=== PATIENT | male | born 1935 | race Caucasian/White ===

== ENCOUNTER 2018-05-08 14:44 | Outpatient (CLI) | payer MEDICARE ==
[2018-05-08 16:23] LABS: #Eosinphils 0.1 thou/uL (0.0-0.7); #Lymphocytes 2.6 thou/uL (1.20-3.40); #Monocytes 0.6 thou/uL (0.11-0.59); #Neutrophils 4.6 thou/uL (1.40-6.50); %Basophils 0.2 % (0.0-1.0); %Eosinophils 1.4 % (0.0-10.0); %Lymphocytes 32.3 % (21.0-51.0); %Monocytes 7.8 % (0.0-10.0); %Neutrophils 58.4 % (42.0-75.0); Hemoglobin 15.5 g/dL (14.0-18.0); Mean Corpuscular HGB CONC 35.2 g/dL (32.0-36.0); Mean Corpuscular Hemoglobin 32.2 pg (27.0-31.0); Mean Corpuscular Volume 91.4 fL (78.0-98.0); Mean Platelet Volume 7.6 fL (7.4-10.4); Platelet Count 245 thou/uL (130-400); RBC Distribution Width 11.4 % (11.5-14.5); Red Blood Cell (RBC) Count 4.82 mill/uL (4.70-6.10); White Blood Cell (WBC) Count 7.9 thou/uL (4.8-10.8)
[2018-05-08 16:44] LABS: ALT (SGPT) 23 U/L (8-55); AST (SGOT) 18 U/L (5-34); Albumin 4.8 g/dL (3.4-4.8); Alkaline Phosphatase 47 U/L (40-150); Anion Gap 13 mmol/L (10-20); BUN (Urea Nitrogen) 25 mg/dL (8.4-25.7); Bilirubin, Total 0.8 mg/dL (0.2-1.2); Calc. Creatinine Clearance 0 mL/min (70-130); Calcium 10.6 mg/dL (7.8-10.44); Carbon Dioxide 26 mmol/L (23-31); Chloride 104 mmol/L (98-107); Estimated GFR-MDRD 46; Globulin 2.7 g/dL (2.4-3.5); Glucose 101 mg/dL (83-110); Potassium 3.3 mmol/L (3.5-5.1); Protein, Total 7.5 g/dL (5.8-8.1); Sodium 140 mmol/L (136-145)
== END 2018-05-08 14:45 | disposition home or self-care (01) ==
LOC: LABBT 14:44
PROVIDERS: ATTEND Surgery
DX: Z01.818 Encounter for other preprocedural examination (principal); C43.59 Malignant melanoma of other part of trunk
CPT/HCPCS: 80053; 85025; 93005; 93010

== ENCOUNTER 2018-05-15 07:19 | Day surgery (SDC) | payer MEDICARE ==
[2018-05-08 15:07] VITALS: BMI 26.3
[2018-05-15] MEDS ORDERED: CEFAZOLIN/Water 2 GM/20 ML SYRINGE ONE (09:49)
--- NOTE | 2018-05-15 10:18 | NM ---
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 PROCEDURE: Informed consent was obtained. The patient was escorted to the procedural suite. The patient was pl aced in the prone position. The area of interest at the site of ptient's recently biopsied skin lesi on was prepped and draped in a standard sterile fashion. Subsequently, 4 separate intradermal injec tions totally 0.4 mCi Technetium 99m filtered sulfur colloid was administered to the patient in 4 sep arate tobi-tumoral injections. Subsequent scintigraphic imaging was performed. No procedural complications. FINDINGS: There are 3 separate foci of increased scintigraphic activity localizing to the right axilla compatib le with right axillary lymph nodes. IMPRESSION: Technically successful lymphoscintigraphy revealing scintigraphic activity of right axillary lymph no ricardo. POS: ISAÍAS
[2018-05-15] MEDS ORDERED: Fentanyl 100 MCG/2 ML VIAL ONE (10:21)
[2018-05-15] MEDS ORDERED: HYDROmorphone 0.5 MG/0.5 ML SYRINGE ONE (10:21)
[2018-05-15] MEDS ORDERED: Isosulfan Blue 50 MG/5 ML VIAL ONE (10:44)
[2018-05-15] MEDS ORDERED: Bupivacaine/Epinephrine 0.25% 30 ML VIAL ONE (10:46)
--- NOTE | 2018-05-15 13:28 | OP ---
DATE OF PROCEDURE: 05/15/2018 PREOPERATIVE DIAGNOSIS: Malignant melanoma of back. SURGEON: Rad Mendoza M.D. PROCEDURE PERFORMED: Wide local excision with left axillary sentinel node biopsy. INDICATIONS: This is an 83-year-old male who had an irregular nevus. He had a shave biopsy done [place] t showed a lentigo malignant melanoma. FINDINGS: Two sentinel lymph nodes were found, excised with 2 cm margins. It was about a 1 cm irreg ular melanoma. The final excisional dimensions were 6 x 13 cm. PROCEDURE IN DETAIL: After informed consent was obtained, the patient was taken to the operating carly m and given general endotracheal anesthesia. He was initially placed on lateral and an injection was performed utilizing 1.5 mL of Lymphazurin intradermal around the tumor. Then, he was placed supine and his axilla was prepped and draped in usual fashion. The Neoprobe was used at baseline with count s around 25 were found. Then transcutaneous counts of about 50 were found. A transverse axillary in cision was performed in vivo counts of 70 found, a lymph node found and dissected out, efferent and a fferent lymphatics ligated with 3-0 Vicryl ties, sent as lymph node 1. Then I found another hot spot with again counts around 70. A second node was found and efferent lymphatics ligated, ex vivo count s of 110 on this one. Hemostasis was assured. The subcu was reapproximated with interrupted 3-0 Bandar ryl. Skin closed with a running subcuticular 4-0 Rapide. Steri-Strips applied. Sterile bandage simran lied. Then, the patient was placed in the right lateral decubitus position. His back was prepped an d draped in usual fashion. 2 cm margins were measured off circumferentially. An elliptical incision was performed, it was done transversely due to the fact that it was much easier to close the skin th at way. An elliptical incision excised down to the subcu. It was excised with the subcu. It was ma rked with a blue suture superior, and a white suture left side, sent to pathology for further analysi s. Hemostasis was achieved with electrocautery. Subcutaneous reapproximated with interrupted 3-0 Vi cryl. Skin closed with interrupted vertical mattress sutures with 3-0 Prolene suture. A sterile ban dage was applied. The patient tolerated the procedure well and was transferred to recovery in good c ondition. Sponge and needle count verified correct x2.
[2018-05-15] MEDS ORDERED: ePHEDrine/0.9% NaCl/PF SYRINGE 50 mg/10 ml ONE (14:07)
[2018-05-15] MEDS ORDERED: Lidocaine 1% PF 5 ML VIAL ONE (14:07)
[2018-05-15] MEDS ORDERED: PROPOFOL 200 MG/20 ML VIAL ONE (14:07)
[2018-05-15] MEDS ORDERED: Ondansetron HCl/PF 4 MG/2 ML Vial ONE (14:07)
[2018-05-15] MEDS ORDERED: PHENYLEPHRINE-NS 100 MCG/ML 10 ML SYRINGE ONE (14:07)
[2018-05-15] MEDS ORDERED: Ketorolac Tromethamine 30 MG/ML VIAL ONE (14:07)
[2018-05-15] MEDS ORDERED: Succinylcholine Chloride 20 MG/ML 10 ml SYRINGE FS ONE (14:07)
[2018-05-15] MEDS ORDERED: Dexamethasone 20 MG/5 ML VIAL ONE (14:07)
== END 2018-05-15 15:00 | disposition home or self-care (01) ==
LOC: SDC 07:19
PROVIDERS: ATTEND Surgery
PROC: 0HB6XZZ Excision of Back Skin, External Approach (ICD-10-PCS; principal; 2018-05-15)
PROC: 07B60ZX Excision of Left Axillary Lymphatic, Open Approach, Diagnostic (ICD-10-PCS; 2018-05-15)
DX: D03.59 Melanoma in situ of other part of trunk (principal); M19.90 Unspecified osteoarthritis, unspecified site; E78.00 Pure hypercholesterolemia, unspecified; I10 Essential (primary) hypertension; M81.0 Age-related osteoporosis without current pathological fracture; Z79.83 Long term (current) use of bisphosphonates; Z79.82 Long term (current) use of aspirin; Z79.899 Other long term (current) drug therapy
CPT/HCPCS: 11606; 12035; 38525; 78195; 88305; 88307; 88341; 88342; A9541; Q9968; J0131; J1100; J1170; J1885; J2001; J2405; J2704; J3010

== ENCOUNTER 2022-08-21 08:32 | Inpatient (IN) | payer MEDICARE ==
[2022-08-21] MEDS ORDERED: Cefepime 2 GM VIAL ONE (08:55)
[2022-08-21] MEDS ORDERED: Vancomycin 1 GM/200 ML BAG ONE (08:59)
[2022-08-21 09:19] LABS: ALT (SGPT) 27 U/L (8-55); AST (SGOT) 25 U/L (5-34); Albumin 2.5 g/dL (3.4-4.8); Alkaline Phosphatase 245 U/L (40-110); Anion Gap 20 mmol/L (10-20); BUN (Urea Nitrogen) 83 mg/dL (8.4-25.7); Bilirubin, Total 1.3 mg/dL (0.2-1.2); Calc. Creatinine Clearance 0 mL/min (70-130); Calcium 8.6 mg/dL (7.8-10.44); Carbon Dioxide 11 mmol/L (23-31); Chloride 117 mmol/L (98-107); Estimated GFR 16; Globulin 2.7 g/dL (2.4-3.5); Glucose 74 mg/dL (83-110); Potassium 4.4 mmol/L (3.5-5.1); Protein, Total 5.2 g/dL (5.8-8.1); Sodium 144 mmol/L (136-145)
[2022-08-21 09:33] LABS: CK (CPK) 100 U/L (30-200); Lipase Less than 4 U/L (8-78)
[2022-08-21 09:54] LABS: Bilirubin Negative (Negative); Blood, Urine 3+ (Negative); Clarity Extra Turbid (Clear); Glucose, Urine (Dipstick) Normal (Negative); Ketone, Urine Negative (Negative); Leukocyte 500 Leu/uL (Negative); Nitrite Negative (Negative); Protein, Urine (Dipstick) 300 mg/dL (Neg-Trace); Specific Gravity, Urine 1.015 (1.002-1.036); Squamous Epithelial None Seen HPF (0-3); Urobilinogen Normal mg/dL (Less than 2); pH, Urine 8.5 (5.0-9.0)
[2022-08-21 10:02] LABS: Bacteria/HPF 4+ HPF (None Seen); WBC/HPF 21-50 HPF (0-3)
[2022-08-21 10:16] LABS: Hemoglobin 7.9 g/dL (14.0-18.0); Mean Corpuscular HGB CONC 31.1 g/dL (32.0-36.0); Mean Corpuscular Hemoglobin 32.1 pg (27.0-31.0); Mean Platelet Volume 8.1 fL (7.4-10.4); Platelet Count 206 thou/uL (130-400); RBC Distribution Width 13.5 % (11.5-14.5); Red Blood Cell (RBC) Count 2.46 mill/uL (4.70-6.10); White Blood Cell (WBC) Count 17.3 thou/uL (4.8-10.8)
[2022-08-21] MEDS ORDERED: Sodium Bicarb 50 MEQ/50 ML VIAL ONE ×3 (10:42→11:07)
[2022-08-21] MEDS ORDERED: Sodium Bicarbonate 150 MEQ in Dextrose 5% in Water 1,000 ML IV SCH ×3 (10:45→15:57)
[2022-08-21 10:48] LABS: Band 24 % (5-11); Burr Cells SLIGHT = 2-5 cells (100X) (0-1/hpf); Hypochromia SLIGHT = 6-15 cells (100X) (0-5/hpf); Lymphocytes 1 % (21-51); MDiff Complete? YES; Macrocytosis SLIGHT = 6-15 cells (100X) (0-5/hpf); Monocytes 1 % (0-10); Neutrophil 74 % (42-75); Platelet Morphology Comment Appears Adequate; Polychromasia SLIGHT = 2-3 cells (100X) (0-2/hpf)
[2022-08-21 10:53] LABS: SARS-CoV-2 NAA Rapid Test Not Detected (NotDetected)
[2022-08-21 10:54] LABS: INR-International Normal Ratio 1.3; Prothrombin Time 17.1 sec (12.0-14.7)
[2022-08-21 10:55] LABS: CKMB 3.9 ng/mL (0-6.6)
[2022-08-21 10:55] LABS: PTT 33.5 sec (22.9-36.1)
[2022-08-21 10:56] LABS: Base Excess -12.7 mEq/L (-2.0 to +3.0); Calcium, Ionized (venous) 1.04 mmol/L (1.16-1.32); Chloride (VBG) 119 mmol/L (98-106); Hemoglobin (Hb) 9.3 g/dL (12.6-17.4); Potassium (VBG) 4.29 mmol/L (3.70-5.30); Sodium 144.2 mmol/L (133-146)
[2022-08-21 10:58] LABS: Actual Bicarbonate (HCO3v) 12 mEq/L (22-28)
[2022-08-21] MEDS ORDERED: Acetaminophen 650 MG Suppository PR PRN (10:58)
[2022-08-21] MEDS ORDERED: Acetaminophen 325 MG TAB PO PRN (10:58)
[2022-08-21] MEDS ORDERED: Sodium Bicarb 50 MEQ/50 ML Abboject 8.4% SYRINGE IVP SCH (11:15)
[2022-08-21 11:20] LABS: Magnesium 1.8 mg/dL (1.6-2.6)
[2022-08-21 11:57] LABS: Lactic Acid 5.5 mmol/L (0.5-2.2)
[2022-08-21] MEDS ORDERED: Vancomycin 1 GM in Premix Bag 1 BAG IVPB SCH (12:15)
[2022-08-21] MEDS: Albumin 25% 25 GM/100 ML BOT IVPB SCH ×3 (12:15→22:39)
[2022-08-21] MEDS ORDERED: Midodrine HCl 5 MG TAB PO SCH (15:00)
[2022-08-21] MEDS ORDERED: Sodium Chloride 0.9% 500 ML IV SCH ×2 (15:30→16:15)
[2022-08-21] MEDS ORDERED: Hydrocortisone Sod Succ/PF 100 mg/2 ml Vial IVP SCH ×2 (15:30→18:00)
[2022-08-21] MEDS ORDERED: Acetaminophen 325 MG/10.15 ML UDCUP PO PRN (15:56)
[2022-08-21] MEDS ORDERED: NOREPINEPHRINE 8 MG/250 ML-D5W 250 ML IVPB PRN (15:56)
[2022-08-21 16:14] LABS: Hemoglobin 7.3 g/dL (14.0-18.0); Mean Corpuscular HGB CONC 31.9 g/dL (32.0-36.0); Mean Corpuscular Hemoglobin 32.4 pg (27.0-31.0); Mean Platelet Volume 8.6 fL (7.4-10.4); Platelet Count 188 thou/uL (130-400); RBC Distribution Width 13.4 % (11.5-14.5); Red Blood Cell (RBC) Count 2.24 mill/uL (4.70-6.10); White Blood Cell (WBC) Count 14.8 thou/uL (4.8-10.8)
[2022-08-21 16:27] LABS: Anion Gap 20 mmol/L (10-20); BUN (Urea Nitrogen) 78 mg/dL (8.4-25.7); Calc. Creatinine Clearance 0 mL/min (70-130); Calcium 7.5 mg/dL (7.8-10.44); Carbon Dioxide 13 mmol/L (23-31); Chloride 118 mmol/L (98-107); Estimated GFR 18; Glucose 83 mg/dL (83-110); Sodium 147 mmol/L (136-145)
[2022-08-21 16:37] LABS: Band 18 % (5-11); Lymphocytes 3 % (21-51); MDiff Complete? YES; Macrocytosis SLIGHT = 6-15 cells (100X) (0-5/hpf); Metamyelocyte 2 % (0-0); Monocytes 3 % (0-10); Neutrophil 74 % (42-75); Platelet Morphology Comment Appears Adequate; Polychromasia SLIGHT = 2-3 cells (100X) (0-2/hpf); Vacuoles SLIGHT
[2022-08-21 16:40] LABS: Lactic Acid 5.3 mmol/L (0.5-2.2)
[2022-08-21 16:53] LABS: CKMB 8.3 ng/mL (0-6.6)
[2022-08-21] MEDS: Hydrocortisone Sod Succ/PF 100 mg/2 ml Vial IVP SCH (19:44)
[2022-08-21] MEDS: Sodium Bicarbonate 150 MEQ in Dextrose 5% in Water 1,000 ML IV SCH (19:45)
[2022-08-21] MEDS ORDERED: Ondansetron PF 4 MG/2 ML Vial IVP PRN (19:46)
[2022-08-21] MEDS ORDERED: FLU VACC QS2022-23(65YR UP)/PF 240 MCG/0.7 ML SYRINGE IM ONE (20:00)
[2022-08-21] MEDS: Morphine 4 MG/ML VIAL SLOW IVP PRN ×2 (20:39→22:34)
[2022-08-21] MEDS ORDERED: Bisacodyl 10 MG SUPP PR SCH (21:00)
[2022-08-21] MEDS ORDERED: Senokot S 8.6-50 MG TAB PO SCH (21:00)
[2022-08-21] MEDS ORDERED: Famotidine 20 MG TAB PO SCH (21:00)
[2022-08-21] MEDS ORDERED: Famotidine/PF 20 mg/2ml Vial SLOW IVP SCH (21:00)
[2022-08-21] MEDS: Heparin 5,000 UNITS/ML VIAL SC SCH ×2 (22:21→22:39)
[2022-08-21] MEDS: Senokot S 8.6-50 MG TAB PO SCH (22:21)
[2022-08-21] MEDS: Polyethylene Glycol 3350 17 GM Packet PO SCH (22:21)
[2022-08-21] MEDS: Midodrine HCl 5 MG TAB PO SCH (22:22)
[2022-08-22] MEDS: Hydrocortisone Sod Succ/PF 100 mg/2 ml Vial IVP SCH ×2 (01:47→09:20)
[2022-08-22] MEDS: Morphine 4 MG/ML VIAL SLOW IVP PRN ×4 (01:47→13:37)
[2022-08-22] MEDS: Sodium Bicarbonate 150 MEQ in Dextrose 5% in Water 1,000 ML IV SCH ×2 (01:48→13:57)
[2022-08-22] MEDS ORDERED: Cefepime 1 GM in Sodium Chloride 0.9% 100 ML IVPB SCH (02:00)
[2022-08-22] MEDS: Midodrine HCl 5 MG TAB PO SCH (02:46)
[2022-08-22 04:56] LABS: ALT (SGPT) 130 U/L (8-55); AST (SGOT) 232 U/L (5-34); Albumin 3.2 g/dL (3.4-4.8); Alkaline Phosphatase 160 U/L (40-110); Anion Gap 20 mmol/L (10-20); BUN (Urea Nitrogen) 80 mg/dL (8.4-25.7); Bilirubin, Total 1.6 mg/dL (0.2-1.2); Calc. Creatinine Clearance 13 mL/min (70-130); Calcium 7.5 mg/dL (7.8-10.44); Carbon Dioxide 14 mmol/L (23-31); Chloride 114 mmol/L (98-107); Estimated GFR 17; Globulin 2.2 g/dL (2.4-3.5); Glucose 81 mg/dL (83-110); Magnesium 1.8 mg/dL (1.6-2.6); Phosphorus 5.6 mg/dL (2.3-4.7); Potassium 4.5 mmol/L (3.5-5.1); Protein, Total 5.4 g/dL (5.8-8.1); Sodium 143 mmol/L (136-145)
[2022-08-22 05:14] LABS: CKMB 31.6 ng/mL (0-6.6)
[2022-08-22] MEDS: Albumin 25% 25 GM/100 ML BOT IVPB SCH ×2 (05:14→13:58)
[2022-08-22 07:29] LABS: Hemoglobin 7.4 g/dL (14.0-18.0); Mean Corpuscular Hemoglobin 32.7 pg (27.0-31.0); Mean Platelet Volume 9.5 fL (7.4-10.4); Platelet Count 174 thou/uL (130-400); RBC Distribution Width 13.7 % (11.5-14.5); Red Blood Cell (RBC) Count 2.25 mill/uL (4.70-6.10); White Blood Cell (WBC) Count 24.5 thou/uL (4.8-10.8)
[2022-08-22 08:28] LABS: Band 38 % (5-11); Burr Cells SLIGHT = 2-5 cells (100X) (0-1/hpf); Lymphocytes 3 % (21-51); MDiff Complete? YES; Macrocytosis SLIGHT = 6-15 cells (100X) (0-5/hpf); Monocytes 1 % (0-10); Neutrophil 58 % (42-75); Platelet Morphology Comment Appears Adequate; Polychromasia SLIGHT = 2-3 cells (100X) (0-2/hpf)
[2022-08-22] MEDS: Senokot S 8.6-50 MG TAB PO SCH (09:06)
[2022-08-22] MEDS: Polyethylene Glycol 3350 17 GM Packet PO SCH (09:06)
[2022-08-22] MEDS: Heparin 5,000 UNITS/ML VIAL SC SCH (09:19)
[2022-08-22 12:17] VITALS: BMI 18.1
[2022-08-22 14:02] VITALS: BP 66/38; TEMP 97.2
[2022-08-22] MEDS ORDERED: Famotidine/PF 20 mg/2ml Vial SLOW IVP SCH (21:00)
[2022-08-22] MEDS ORDERED: Famotidine 20 MG TAB PO SCH (21:00)
== END 2022-08-22 13:25 | disposition hospice, inpatient (51) | DRG 871 ==
LOC: ERS 08:32 → ERHOLD 10:37 → 2NO 14:23
PROVIDERS: ADMIT Internal Medicine; ATTEND Internal Medicine
PROC: 3E03329 Introduction of Other Anti-infective into Peripheral Vein, Percutaneous Approach (ICD-10-PCS; principal; 2022-08-21)
PROC: 30233N1 Transfusion of Nonautologous Red Blood Cells into Peripheral Vein, Percutaneous Approach (ICD-10-PCS; 2022-08-21)
DX: A41.4 Sepsis due to anaerobes (principal); G93.41 Metabolic encephalopathy; R65.21 Severe sepsis with septic shock; I21.A1 Myocardial infarction type 2; N18.4 Chronic kidney disease, stage 4 (severe); Z66 Do not resuscitate; Z20.822 Contact with and (suspected) exposure to COVID-19; Z51.5 Encounter for palliative care; I13.0 Hypertensive heart and chronic kidney disease with heart failure and stage 1 through stage 4 chronic kidney disease, or unspecified chronic kidney disease; I50.32 Chronic diastolic (congestive) heart failure; N25.81 Secondary hyperparathyroidism of renal origin; N17.9 Acute kidney failure, unspecified; E87.20 Acidosis, unspecified; E44.0 Moderate protein-calorie malnutrition; Z68.1 Body mass index [BMI] 19.9 or less, adult; N13.6 Pyonephrosis; J98.11 Atelectasis; F03.90 Unspecified dementia, unspecified severity, without behavioral disturbance, psychotic disturbance, mood disturbance, and anxiety; F31.9 Bipolar disorder, unspecified; F41.9 Anxiety disorder, unspecified; E78.5 Hyperlipidemia, unspecified; I25.10 Atherosclerotic heart disease of native coronary artery without angina pectoris; R41.89 Other symptoms and signs involving cognitive functions and awareness; R29.6 Repeated falls; M81.0 Age-related osteoporosis without current pathological fracture; I48.0 Paroxysmal atrial fibrillation; D63.1 Anemia in chronic kidney disease; R13.10 Dysphagia, unspecified; N40.0 Benign prostatic hyperplasia without lower urinary tract symptoms; Z53.20 Procedure and treatment not carried out because of patient's decision for unspecified reasons; R94.5 Abnormal results of liver function studies; E88.09 Other disorders of plasma-protein metabolism, not elsewhere classified; Z95.0 Presence of cardiac pacemaker; Z79.899 Other long term (current) drug therapy; Z79.82 Long term (current) use of aspirin; Z91.81 History of falling; Z85.820 Personal history of malignant melanoma of skin; K56.41 Fecal impaction
CPT/HCPCS: 36415; 36416; 36430; 70450; 71045; 74176; 80053; 81003; 81015; 82140; 82533; 82550; 82553; 82805; 83605; 83690; 83735; 83880; 83930; 84100; 84484; 85025; 85610; 85730; 86850; 86900; 86901; 87040; 87077; 87149; 87186; 93005; 93970; 94640; 97139; J0692; J1644; J1720; J2270; J3370; J3490; J7030; J7070; J7620; P9016; P9047; S0028